=== PATIENT | male | born 1935 | race Two or more races ===

== ENCOUNTER 2018-12-02 08:58 | Outpatient (CLI) | payer OTHER | END 2018-12-02 09:03 | disposition home or self-care (01) | LOC: RAD 501 08:58 | DX: H25.012 Cortical age-related cataract, left eye (principal); Z01.810 Encounter for preprocedural cardiovascular examination ==

== ENCOUNTER 2019-09-13 15:35 | Outpatient (CLI) | payer OTHER | END 2019-09-13 15:41 | disposition home or self-care (01) | LOC: RAD 15:35 | DX: C67.8 Malignant neoplasm of overlapping sites of bladder (principal) ==

== ENCOUNTER 2019-09-20 15:01 | Outpatient (CLI) | payer OTHER ==
[2019-09-20] MEDS ORDERED: COZAAR25 MG (15:09)
[2019-09-20] MEDS ORDERED: SIMVASTATIN5 MG (15:09)
== END 2019-09-20 15:06 | disposition home or self-care (01) ==
LOC: EKG 15:01
DX: I10 Essential (primary) hypertension (principal)

== ENCOUNTER 2019-10-13 08:15 | Outpatient (CLI) | payer OTHER ==
[~2019-10-13 08:15] MED LIST: COZAAR25 MG; SIMVASTATIN5 MG
== END 2019-10-13 08:20 | disposition home or self-care (01) ==
LOC: LAB 08:15
DX: N30.00 Acute cystitis without hematuria (principal)

== ENCOUNTER 2020-04-23 13:50 | Outpatient (CLI) | payer OTHER | END 2020-04-23 13:53 | disposition home or self-care (01) | LOC: TOM 13:50 | DX: R91.1 Solitary pulmonary nodule (principal); J98.2 Interstitial emphysema; J44.1 Chronic obstructive pulmonary disease with (acute) exacerbation ==

== ENCOUNTER 2020-08-24 09:52 | Outpatient (CLI) | payer OTHER | END 2020-08-24 09:57 | disposition home or self-care (01) | LOC: RAD 09:52 | PROVIDERS: ATTEND Urology | DX: N20.0 Calculus of kidney (principal) ==

== ENCOUNTER 2020-12-04 09:22 | Outpatient (CLI) | payer OTHER | END 2020-12-04 09:26 | disposition home or self-care (01) | LOC: LAB 09:22 | PROVIDERS: ATTEND Urology | DX: N30.00 Acute cystitis without hematuria (principal) ==

== ENCOUNTER 2021-09-27 07:35 | Outpatient (CLI) | payer OTHER | END 2021-09-27 07:48 | disposition home or self-care (01) | LOC: SONOGRAMA 07:35 | PROVIDERS: ATTEND Family Medicine | DX: S46.012A Strain of muscle(s) and tendon(s) of the rotator cuff of left shoulder, initial encounter (principal) ==

== ENCOUNTER 2021-10-01 08:24 | Outpatient (CLI) | payer OTHER | END 2021-10-01 08:34 | disposition home or self-care (01) | LOC: RAD 08:24 | PROVIDERS: ATTEND Orthopaedic Surgery Sports Medicine | DX: M75.52 Bursitis of left shoulder (principal) ==

== ENCOUNTER 2022-12-03 07:39 | Emergency (ER) | payer OTHER ==
[~2022-12-03] VITALS: Ht 177.8 cm; Wt 73.9 kg
[2022-12-03] MEDS ORDERED: AZITHROMYCIN250 MG PO (07:55)
== END 2022-12-03 18:09 | disposition home or self-care (01) ==
LOC: ER 07:39
DX: K80.50 Calculus of bile duct without cholangitis or cholecystitis without obstruction (principal); Z88.0 Allergy status to penicillin

== ENCOUNTER 2023-05-13 09:38 | Outpatient (CLI) | payer OTHER ==
[~2023-05-13 09:38] MED LIST changes: +AZITHROMYCIN250 MG PO
== END 2023-05-13 09:39 | disposition home or self-care (01) ==
LOC: EKG 09:38
PROVIDERS: ATTEND Internal Medicine Gastroenterology
DX: K76.89 Other specified diseases of liver (principal)

== ENCOUNTER 2023-09-07 10:52 | Outpatient (CLI) | payer OTHER ==
[~2023-09-07 10:52] MED LIST changes: +DOXAZOSIN MESYLA4 MG; +FLONASE16 GM; +GENTAMICIN SULFA5 ML; +MONTELUKAST SOD10 MG; +OFLOXACIN5 ML; +SIMVASTATIN40 MG; +STIOLTO RESPIMAT4 GM
[2023-09-07 11:59] LABS: HEMATOCRIT 35.2 % (39.0-48.0); HEMOGLOBIN 11.4 g/dL (13-16.00); MEAN CELL VOLUME 93.9 fL (80.0-100.00); MEAN CORPUSCULAR HEMOGLOBIN 30.5 pg (27.00-32.0); MEAN CORPUSCULAR HGB CONC 32.4 g/dl (32.0-36.0); PLATELET COUNT 385 K/uL (150-450); RED BLOOD COUNT 3.75 M/uL (4.00-6.00)
[2023-09-07 12:22] LABS: ALBUMIN 2.4 gm/dL (3.4-5.0); BILIRUBIN TOTAL 0.49 mg/dL (0.3-1.2); CREATININE SERUM 0.72 mg/dL (0.70-1.30); GFR 103.02; GLOBULINA 4.4 G/DL (2.4-3.5); POTASSIUM 4.57 mEq/L (3.5-5.1); TOTAL PROTEIN 6.8 gm/dL (6.4-8.2)
== END 2023-09-07 10:54 | disposition home or self-care (01) ==
LOC: LAB 10:52
PROVIDERS: ATTEND Specialist
DX: R10.9 Unspecified abdominal pain (principal); Z88.0 Allergy status to penicillin

== ENCOUNTER 2023-09-07 12:05 | Outpatient (CLI) | payer OTHER | END 2023-09-07 12:32 | disposition home or self-care (01) | LOC: TOM 12:05 | PROVIDERS: ATTEND Specialist | DX: R10.9 Unspecified abdominal pain (principal); Z88.0 Allergy status to penicillin ==

== ENCOUNTER 2023-09-07 16:59 | Inpatient (IN) | payer OTHER ==
[2023-09-09 07:13] LABS: HEMATOCRIT 32.8 % (39.0-48.0); HEMOGLOBIN 11.2 g/dL (13-16.00); MEAN CELL VOLUME 92.9 fL (80.0-100.00); MEAN CORPUSCULAR HEMOGLOBIN 31.8 pg (27.00-32.0); MEAN CORPUSCULAR HGB CONC 34.2 g/dl (32.0-36.0); PLATELET COUNT 351 K/uL (150-450); RED BLOOD COUNT 3.54 M/uL (4.00-6.00); RED CELL DISTRIBUTION WIDTH 14.2 % (11.5-14.5)
[2023-09-09 08:06] LABS: ALBUMIN 2.1 gm/dL (3.4-5.0); BILIRUBIN TOTAL 0.29 mg/dL (0.3-1.2); CALCIUM 8.4 mg/dL (8.5-10.1); CREATININE SERUM 0.72 mg/dL (0.70-1.30); GFR 103.02; GLOBULINA 3.7 G/DL (2.4-3.5); POTASSIUM 4.02 mEq/L (3.5-5.1); TOTAL PROTEIN 5.8 gm/dL (6.4-8.2)
[2023-09-11 06:36] LABS: HEMATOCRIT 31.8 % (39.0-48.0); HEMOGLOBIN 10.9 g/dL (13-16.00); MEAN CELL VOLUME 92.1 fL (80.0-100.00); MEAN CORPUSCULAR HEMOGLOBIN 31.5 pg (27.00-32.0); MEAN CORPUSCULAR HGB CONC 34.2 g/dl (32.0-36.0); PLATELET COUNT 339 K/uL (150-450); RED BLOOD COUNT 3.46 M/uL (4.00-6.00); RED CELL DISTRIBUTION WIDTH 14.4 % (11.5-14.5)
[2023-09-11 07:18] LABS: ALBUMIN 2.1 gm/dL (3.4-5.0); BILIRUBIN TOTAL 0.34 mg/dL (0.3-1.2); CALCIUM 8.2 mg/dL (8.5-10.1); CREATININE SERUM 0.61 mg/dL (0.70-1.30); GFR 124.75; GLOBULINA 3.5 G/DL (2.4-3.5); MAGNESIUM 2.2 mg/dL (1.8-2.4); PHOSPHOROUS 2.6 mg/dL (2.5-4.9); POTASSIUM 4.06 mEq/L (3.5-5.1); TOTAL PROTEIN 5.6 gm/dL (6.4-8.2)
[2023-09-11 07:19] LABS: C-REACTIVE PROTEIN 2.98 MG/DL (0.00-0.29)
[2023-09-14 07:09] LABS: HEMATOCRIT 32.6 % (39.0-48.0); HEMOGLOBIN 11.2 g/dL (13-16.00); MEAN CELL VOLUME 91.3 fL (80.0-100.00); MEAN CORPUSCULAR HEMOGLOBIN 31.4 pg (27.00-32.0); MEAN CORPUSCULAR HGB CONC 34.4 g/dl (32.0-36.0); PLATELET COUNT 305 K/uL (150-450); RED BLOOD COUNT 3.57 M/uL (4.00-6.00); RED CELL DISTRIBUTION WIDTH 14.6 % (11.5-14.5)
[2023-09-14 07:36] LABS: ALBUMIN 2.3 gm/dL (3.4-5.0); BILIRUBIN TOTAL 0.32 mg/dL (0.3-1.2); CALCIUM 8.3 mg/dL (8.5-10.1); CREATININE SERUM 0.62 mg/dL (0.70-1.30); GFR 122.43; GLOBULINA 3.2 G/DL (2.4-3.5); POTASSIUM 4.23 mEq/L (3.5-5.1); TOTAL PROTEIN 5.5 gm/dL (6.4-8.2)
== END 2023-09-15 12:00 | disposition home or self-care (01) | DRG 862 ==
LOC: SURH 16:59 → MEDJ 16:59 → SURH 17:15
PROVIDERS: Internal Medicine Infectious Disease; ADMIT Specialist; ATTEND Specialist
PROC: 0W9G30Z Drainage of Peritoneal Cavity with Drainage Device, Percutaneous Approach (ICD-10-PCS; principal; 2023-09-08)
PROC: CF1C1ZZ Planar Nuclear Medicine Imaging of Hepatobiliary System, All using Technetium 99m (Tc-99m) (ICD-10-PCS; 2023-09-10)
DX: T81.43XA Infection following a procedure, organ and space surgical site, initial encounter (principal); K65.1 Peritoneal abscess; K91.870 Postprocedural hematoma of a digestive system organ or structure following a digestive system procedure; I10 Essential (primary) hypertension; E78.5 Hyperlipidemia, unspecified; B96.20 Unspecified Escherichia coli [E. coli] as the cause of diseases classified elsewhere; B96.89 Other specified bacterial agents as the cause of diseases classified elsewhere; N40.0 Benign prostatic hyperplasia without lower urinary tract symptoms